=== PATIENT | male | born 1960 | race Caucasian/White ===

== ENCOUNTER → 2016-03-05 | Outpatient (CLI) | payer OTHER ==
--- NOTE | 2016-03-05 15:14 | PN ---
DATE OF SERVICE: 03/05/2016 A 55-year-old gentleman who has been [facility] for treatment of obstructive sleep apnea-hypopnea syndrome. I discussed results of the sleep studies with patient in detail. Presently he is on treatment with a CPAP. I checked CPAP unit. CPAP pressure is 13 cm of water. Patient using equipment 29 out of 30 nights for more than 4 hours, average use is 9 hours per night. Leak is in very good range 6 L/min. Apnea-hypopnea index reading for the month 0.8. Patient feels better during the day and sleeps better. [place] Sleepiness Scale is 7. Patient does not use any ramp, he feels fine without ramp. MEDICATIONS: Xanax, Celexa, Wellbutrin, ( ), [place], ( ). During physical exam, patient in no distress. BP 143/73, HR 86, RR 18. Weight 451 pounds. Temperature 97.3. Oxygen saturation at room air 96%. HEENT: PERRLA, EOMI. LUNGS: Clear. HEART: S1, S2 regular. ABDOMEN: Obese, soft, nontender. EXTREMITIES: Obese, no edema. IMPRESSION: 1. Obstructive sleep apnea-hypopnea syndrome on full control with CPAP at 13 cm of water. Patient demonstrated practically 100% compliance with treatment, benefiting from treatment. 2. Obesity. 3. Hypertension. 4. Depression. 5. Anxiety. 6. Left knee arthritis. PLAN: 1. Continue treatment with CPAP every night for the whole night with the same pressure. 2. Aggressive losing weight program. 3. Sleep hygiene with regular time in bed for at least 8 hours. 4. No driving if feeling any sleepiness. 5. Prescription for all necessary CPAP supplies. Thank you very much for allowing me to participate in the management of your patient. Sincerely, Jasmeet Diop MD, PhD, FAASM. Diplomat of [place] [employer], Sleep Medicine Board by [place] [employer] [place] [employer] Engineer of [facility] [place]
== END | disposition home or self-care (01) ==

== ENCOUNTER → 2017-03-25 | Outpatient (CLI) | payer SELFPAY ==
--- NOTE | 2017-03-25 14:08 | PN ---
PROGRESS NOTE DATE OF SERVICE: 03/25/2017 A 57-year-old gentleman who has been followed in [facility] for treatment of obstructive sleep apnea-hypopnea syndrome. Since previous visit about 1 year ago patient lost about 10 pounds. He continued to use his CPAP equipment every night for the whole night without any significant problems related to mask, pressure or humidification. [place] Sleepiness Scale today is 6. I checked his CPAP unit, CPAP pressure of 13 cm of water. Usage is 100% of the time more than 4 hours. Average usage is 10.1 hours. Leak is 14 L/minute, which is acceptable range. Apnea-hypopnea index for the last month 1.0, which is perfect. Patient does not use any ramp pressure, goes directly to the therapeutic level. MEDICATIONS: Topamax, Voltaren, Celexa, Wellbutrin, Brady on p.r.n. basis. PHYSICAL EXAM: Patient in no distress. BP 154/78, HR 87, RR 20, height 5, 7, weight 440.4, BMI 68.9, temp 98.0, oxygen saturation at room air 97%. OROPHARYNX: Extremely low position of soft palate. Mallampati 4. ABDOMEN: Obese. Neck Supple, no JVD. Thyroid is not palpable. LUNGS Clear to percussion and to auscultation. Good air exchange. No wheezing or rhonchi. HEART S1, S2 regular. No murmurs, gallops, or rubs. EXTREMITIES No clubbing or cyanosis. 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 Cranial nerves 2 to 7 intact. There is no fasciculation or atrophy. noted. No focal deficits observed. IMPRESSION: 1. Obstructive sleep apnea-hypopnea syndrome on control with CPAP at 13 cm of water, patient demonstrated 100% compliance with treatment benefitting from treatment. 2. Obesity. 3. Depression. 4. Anxiety. 5. Hypertension. 6. History of left knee arthritis. PLAN: 1. Continue treatment with CPAP every night. 2. Aggressive losing weight. 3. Sleep hygiene with regular time in bed for at least 8 hours. 4. Monitoring of blood pressure, low-sodium diet. Blood pressure increased today in the office. Presently, patient does not take any medications for hypertension. If tendency for increasing blood pressure, he will check with his primary care physician. 5. Prescription for all necessary CPAP supplies including mask, tube, filters. Thank you very much for allowing me to participate in the management of your patient. Sincerely, Jasmeet Diop MD, PhD, FAASM Diplomat of [employer] Substitute [employer] Guard of [facility] [place] OSCAR / AYSHA: [id number] /
== END | disposition home or self-care (01) ==
LOC: SLEEP 13:04
PROVIDERS: ATTEND Internal Medicine
DX: G47.33 Obstructive sleep apnea (adult) (pediatric) (principal); E66.9 Obesity, unspecified; M17.12 Unilateral primary osteoarthritis, left knee; F32.9 Major depressive disorder, single episode, unspecified; F41.9 Anxiety disorder, unspecified; I10 Essential (primary) hypertension; Z99.89 Dependence on other enabling machines and devices; Z79.891 Long term (current) use of opiate analgesic; Z79.899 Other long term (current) drug therapy; Z68.44 Body mass index [BMI] 60.0-69.9, adult

== ENCOUNTER → 2023-08-03 | Outpatient (CLI) | payer MEDICARE ==
--- NOTE | 2023-08-10 02:09 | CT ---
EXAMINATION TYPE: CT brain wo/w con CT DLP: 2246.4 mGycm, Automated exposure control for dose reduction was used. DATE OF EXAM: 08/03/2023 2:35 PM COMPARISON: None. CLINICAL INDICATION:Male, 63 years old with history of R06.02,R63.4,G47.19 OTHER HYPERSOMNIA; PHH, Ab normal weight loss, over 100lbs x2wks. TECHNIQUE: CT of the head was performed both without and with IV contrast. Multiplanar reformats gene rated. Contrast used:100 mL of Isovue 300 without and with IV Contrast, Oral contrast used: none. FINDINGS: Extra-axial spaces: No abnormal extra-axial fluid collections. Ventricular system: Within normal limits Cerebral parenchyma: No acute intraparenchymal hemorrhage or mass effect. The loredo-white junction is well differentiated. No abnormal enhancement is seen after the administration of intravenous contras t. Cerebellum: Unremarkable. Mass effect: No evidence of midline shift. Intracranial vasculature: unremarkable Soft tissues: Normal. Calvarium/osseous structures: No evidence of skull fracture. Paranasal sinuses and mastoid air cells: Clear. Visualized orbits: Orbital contents are intact. Note: Small lesions may not be, and often are not, evident on CT. For greater sensitivity, contrast M RI is generally the recommended study of choice if possible. IMPRESSION: No acute intracranial abnormality. Right
== END | disposition home or self-care (01) ==
LOC: RADCTMAIN 13:55
PROVIDERS: ATTEND Family Medicine
DX: G47.19 Other hypersomnia (principal); R06.02 Shortness of breath; R63.4 Abnormal weight loss
CPT/HCPCS: 70470; Q9967